=== PATIENT | male | born 1930 | race Caucasian/White ===

== ENCOUNTER 2016-09-11 22:23 | Emergency (ER) | payer MEDICARE, OTHER ==
[~2016-09-11] VITALS: Ht 180.3 cm; Wt 82.6 kg
[~2016-09-11 22:23] MED LIST: ASPI81TA2 PO; ATOR40TA PO; ATOR40TA59 PO; CARV25TA2 PO; FENO160T PO; GABA-586 PO; ISOS30TA17 PO; PANT20TA2 PO; PANT40VI IV; RANI150T2 PO; VALS1TAB22 PO; VALS1TAB33 PO; vitamin D PO
--- NOTE | 2016-09-11 22:34 | PHYS DOC ---
General Stated Complaint: FEVER,UTI Time Seen by MD: 22:29 Source: patient, EMS Problems: History of Present Illness Initial Comments Patient here by EMS for possible injury after fall. With him initial of physician evaluation, the patient's family is now the room with him. Patient states that he was going to go to the bathroom today, sat on the toilet, and the toilet literally broke on him. He says he went to the floor. He doesn't think he injured himself, he has no headache loss of consciousness or seizure activity. He says he had difficulty getting up off the floor, but was assisted off the floor by others and EMS was called to bring her to the hospital. The patient at time of physician evaluation has no complaints. He has no complaints of pain or any particular weakness. He says he normally gets around with a walker and did not try to get up and walk since his fall. Again, he has no complaints of pain or any injury since the fall. He says he did not actually go to the bathroom during the fall, was not incontinent, and has not gone to the restroom since. He denies any fever chills URI symptoms or cough today. There is no runny nose or sore throat. No vision or speech change. He has no neck or back pain. No chest pain or shortness breath. He has no nausea vomiting or abdominal pain. There is no change amount of bladder habits he denies any acute focal extremity or neurologic complains. It's noted by the physician that he does have some shaking of the upper extremity is, this is chronic per patient. Patient states he feels pretty much normal at this time. Other than transfer by EMS there is nothing done for this prior to arrival in the ER no fractures noted increase or decrease any symptoms he might have. Patient's past medical history according him is remarkable for high blood pressure. She takes medicine but he doesn't know why. He tells me ask his . He denies alcohol or cigarettes. In speaking with the who presents later. She indicates the patient's been somewhat weak all day. He had a fast yesterday and then [facility]. He was reportedly diagnosed with UTI but offer no antibiotics. He's also had several episodes of diarrhea today with increasing weakness. She doesn't think he actually broke the toilet, but they apparently have some sort of support chair on top of the toilet lid, and this may have slid off and he may fall off out. Patient's past medical history according to her is remarkable for heart disease. He has had multiple stents and she says two are clotted off according to his . He apparently has dementia as well. He has generalized weakness and difficulty walking, and she confirms that he does use a walker at home. Allergies: Coded Allergies: Sulfa (Sulfonamide Antibiotics) (Verified Allergy, Unknown, 10/09/15) Social History Smoker: non-smoker Alcohol: none Review of Systems All Other Systems: Reviewed and Negative Physical Exam General Appearance: WD/WN, no apparent distress Eyes: bilateral eye EOMI, bilateral eye PERRL, bilateral eye normal inspection Ear, Nose, Throat: normal ENT inspection, normal pharynx Neck: full range of motion, supple, normal inspection Respiratory: lungs clear, normal breath sounds, no respiratory distress Cardiovascular: regular rate, rhythm, no edema Gastrointestinal: non tender, soft, no organomegaly Back: no CVA tenderness, no vertebral tenderness Extremities: non-tender, normal inspection, no pedal edema Neurologic/Psychiatric: filter tank tender II-XII nml as tested, no motor/sensory deficits, alert, normal mood/affect Skin: normal color Lymphatic: no adenopathy Comments Generally this is an elderly white male in no acute distress. Vitals are as noted. Pertinent findings on physical exam shows a head atraumatic normocephalic. Pupils are equal reactive light accommodation. Extra ocular movements are intact. Ears and throat are clear. Neck is supple without adenopathy or JVD. There is no bony vertebral tenderness. There is no signs of trauma. Chest is clear and cardiac vascular exam shows regular rate and rhythm with a 3/6 midsystolic murmur heard best at the lower left sternal border. Abdomen is soft and nontender without masses or megaly. The back shows no CVA tenderness. There is no vertebral bony tenderness as well. Extremities show no rashes, cyanosis, or edema. Patient says the patient is alert awake and oriented to person, place, and to date and year, but not to month. Cranial nerves II through XII grossly intact. Strength 5 over 5 equal all sites tested. He is noted to have some resting tremor in the upper extremity is. There is no gross sensory deficits. He is initially not ambulated in the ER. Remainder of physical exam is clinically unremarkable. Orders, Labs, Meds Old charts note a single previous ER visit for dizziness and shaking. He was also admitted to the hospital in 2013 for GI bleed. EKG shows sinus at 70. Minimal right axis deviation. Right bundle branch block. No acute ST or T-wave changes. Labs today are essentially clinically unremarkable. Creatinine is minimally elevated at 1.8, probably consistent with the patient's age. There is no evidence of UTI. Influenza and acetone are negative. CT scan of the head shows no acute changes per radiology. 0130 Patient resting comfortably in the ED. I discussed with the the uncertain cause the patient's weakness today. There is no evidence of UTI at this time, fourthly, and his electrolytes are otherwise fairly stable. The patient is actually doing much better, the says that he is pretty much back to normal now. She says his color is better. She thinks it probably what happened as he was weak over the course of day because he had a fast prior to his physician visit earlier today. We are able to get the patient up and is able to use a walker in normal fashion as he doesn't home. He has no complaints at this time and the is quite comfortable taking him home, and I think it' s reasonable decision on her part. The delivery in an independent living facility, they can summon help as needed. does voice understanding need for the patient follow-up with primary care or return the ER sooner as needed if worsen anyway. The patient himself looks well, in no acute discomfort distress, with no acute findings on evaluation, and okay for discharge home at this time with his . RIVERA JARQUIN MD Sep 11, 2016 22:34
--- NOTE | 2016-09-11 23:09 | EKG ---
[address] [address] Test Date: 2016-09-11 Test Time: 23:08:26 Pat Name: ANDREW ORDOÑEZ Department: Room: Gender: M Mortgage Closing Clerk: IDA : 1930 Requested By: RIVERA JARQUIN Order Number: [id number] Reading MD: Measurements Intervals [place] Rate: 73 P: -27 [place]: 284 QRS: 33 QRSD: 136 T: -13 QT: 386 QTc: 429 Interpretive Statements SINUS RHYTHM PROLONGED [place] INTERVAL RIGHT BUNDLE BRANCH BLOCK QRS(T) CONTOUR ABNORMALITY CONSIDER ANTEROSEPTAL MYOCARDIAL DAMAGE ABNORMAL ECG RI6.01 Unconfirmed report Compared to ECG 07/07/2013 12:34:17 No significant changes
--- NOTE | 2016-09-11 23:34 | RAD ---
PROCEDURE CT head without contrast. HISTORY Fall tonight, hit head. Confusion, weakness, fever. TECHNIQUE Helical CT imaging of the brain is performed without IV contrast. PQRS: One or more the following individualized dose reduction techniques were utilized for the study: 1. Automated exposure control. 2. Adjustment of the mA and/or kV according to patient size. 3. Use of iterative reconstruction technique. COMPARISON CT head without contrast, July 07, 2013. FINDINGS There is no midline shift or mass effect. No extra-axial fluid collection or intraparenchymal hemorrhage. Malave-white matter differentiation is preserved. The ventricles and sulci are prominent, consistent with age-related cerebral atrophy. There is periventricular white matter hypoattenuation, nonspecific but commonly due to chronic small vessel ischemic disease in a patient of this age. Mucosal thickening left maxillary sinus. The mastoid air cells are clear. The globes and orbits appear intact. No acute calvarial abnormality. IMPRESSION No acute intracranial abnormality. Electronically signed by: Elder Adames MD (Sep 11, 2016 23:34:15)
[2016-09-12 00:34] LABS: BASO # 0.1 x10^3/uL (0.0-0.2); BASO % 0 % (0-3); EOS # 0.1 x10^3/uL (0.0-0.7); EOS % 1 % (0-3); HEMATOCRIT 35.1 % (39.0-53.0); HEMOGLOBIN 11.9 g/dL (13.0-17.5); LYMPH % 14 % (24-48); MEAN CORPUSCULAR HEMOGLOBIN 31 pg (25-35); MEAN CORPUSCULAR HGB CONC 34 g/dL (31-37); MEAN CORPUSCULAR VOLUME 92 fL (79-100); MONO # 0.9 x10^3/uL (0.0-1.1); MONO % 6 % (0-9); NEUT # 11.2 x10^3uL (1.8-7.7); NEUT % 78 % (31-73); PLATELET COUNT 116 x10^3/uL (140-400); RED BLOOD COUNT 3.82 x10^6/uL (4.30-5.70); RED CELL DISTRIBUTION WIDTH 15.7 % (11.5-14.5); WHITE BLOOD COUNT 14.2 x10^3/uL (4.0-11.0)
[2016-09-12 00:44] LABS: ALBUMIN 2.9 g/dL (3.4-5.0); CALCIUM 8.1 mg/dL (8.5-10.1); CREATININE 1.8 mg/dL (0.7-1.3); GFR 36.1; TOTAL BILIRUBIN 0.8 mg/dL (0.2-1.0); TOTAL PROTEIN 5.7 g/dL (6.4-8.2)
[2016-09-12 01:14] LABS: BACTERIA,URINE FEW /HPF (0-FEW); BILIRUBIN,URINE NEG (NEG); CLARITY,URINE CLEAR; COLOR,URINE YELLOW; GLUCOSE,URINE NEG (NEG); HYALINE CASTS, URINE OCC /HPF; NITRITE,URINE NEG (NEG); RBC,URINE RARE /HPF (0-2); SQUAMOUS EPITHELIAL CELL,UR OCC /LPF; UROBILINOGEN,URINE 2 mg/dL (0.2 mg/dL); WBC,URINE OCC /HPF (0-4)
[2016-09-12 01:25] LABS: INFLUENZA A PATIENT NEGATIVE (NEGATIVE); INFLUENZA B PATIENT NEGATIVE (NEGATIVE)
[2016-09-12 01:35] VITALS: BP 120/69
== END 2016-09-12 01:55 | disposition home or self-care (01) ==
LOC: ER 22:23
DX: R53.1 Weakness (principal); F03.90 Unspecified dementia, unspecified severity, without behavioral disturbance, psychotic disturbance, mood disturbance, and anxiety; R19.7 Diarrhea, unspecified; Z88.2 Allergy status to sulfonamides
CPT/HCPCS: 36415; 70450; 80053; 81001; 82010; 83605; 85027; 85610; 87040; 87804; 93005; 99285-25

== ENCOUNTER 2016-12-07 08:41 | Emergency (ER) | payer MEDICARE, OTHER ==
[~2016-12-07] VITALS: Ht 180.3 cm; Wt 81.6 kg
[~2016-12-07 08:41] MED LIST changes: +ASPI-630 PO; -ASPI81TA2 PO; -ISOS30TA17 PO; +ISOS30TA19 PO; -PANT20TA2 PO; +PANT20TA58 PO; -PANT40VI IV; +PANT40VI16 IV
--- NOTE | 2016-12-07 08:54 | EKG ---
[address] [address] Test Date: 2016-12-07 Test Time: 08:48:19 Pat Name: ANDREW ORDOÑEZ Department: Room: Gender: M Dental Surgeon: CHICHO : 1930 Requested By: ADRIAN GORDILLO Order Number: [id number] Reading MD: John Allen Measurements Intervals [place] Rate: 64 P: -27 [place]: 266 QRS: 55 QRSD: 144 T: -23 QT: 486 QTc: 506 Interpretive Statements SINUS RHYTHM PROLONGED [place] INTERVAL LEFT ATRIAL ABNORMALITY RIGHT BUNDLE BRANCH BLOCK Electronically Signed On 12-26-2016 15:14:24 CDT by John Allen
[2016-12-07] MEDS ORDERED: IV NORMAL SALINE 1,000ML 1,000 ML IV ONE (09:00)
[2016-12-07 09:10] LABS: BASO # 0.1 x10^3/uL (0.0-0.2); BASO % 1 % (0-3); EOS # 0.3 x10^3/uL (0.0-0.7); EOS % 3 % (0-3); HEMATOCRIT 43.5 % (39.0-53.0); HEMOGLOBIN 14.8 g/dL (13.0-17.5); LYMPH # 2.3 x10^3/uL (1.0-4.8); LYMPH % 23 % (24-48); MEAN CORPUSCULAR HEMOGLOBIN 31 pg (25-35); MEAN CORPUSCULAR HGB CONC 34 g/dL (31-37); MEAN CORPUSCULAR VOLUME 91 fL (79-100); MONO # 0.6 x10^3/uL (0.0-1.1); MONO % 6 % (0-9); NEUT # 6.8 x10^3uL (1.8-7.7); NEUT % 67 % (31-73); PLATELET COUNT 154 x10^3/uL (140-400); RED BLOOD COUNT 4.78 x10^6/uL (4.30-5.70); RED CELL DISTRIBUTION WIDTH 14.6 % (11.5-14.5); WHITE BLOOD COUNT 10.1 x10^3/uL (4.0-11.0)
--- NOTE | 2016-12-07 09:12 | RAD ---
CT of the head without contrast, 12/07/2016: History: Altered mental status, patient fell Comparison is made to a study from 09/11/2016. There is moderate cerebral atrophy. There are unchanged lucencies in the left frontal lobe compatible with an old infarct. There are additional faint periventricular lucencies bilaterally compatible with chronic ischemic change. The ventricles are mildly enlarged on a compensatory basis. There is no shift of the midline structures. There is no evidence of acute intracranial hemorrhage or mass effect. There is moderate mucosal thickening in the left maxillary sinus. IMPRESSION: 1. Chronic findings as described above. 2. No acute intracranial abnormality is detected. PQRS Compliance Statement: One or more of the following individualized dose reduction techniques were utilized for this examination: 1. Automated exposure control 2. Adjustment of the mA and/or kV according to patient size 3. Use of iterative reconstruction technique
[2016-12-07 09:22] LABS: ALBUMIN 3.6 g/dL (3.4-5.0); CALCIUM 8.8 mg/dL (8.5-10.1); CREATININE 1.4 mg/dL (0.7-1.3); GFR 48.3; POTASSIUM 4.2 mmol/L (3.5-5.1); TOTAL BILIRUBIN 0.6 mg/dL (0.2-1.0); TOTAL PROTEIN 7.1 g/dL (6.4-8.2)
[2016-12-07 09:53] LABS: BILIRUBIN,URINE NEG (NEG); CLARITY,URINE CLEAR; COLOR,URINE YELLOW; GLUCOSE,URINE NEG (NEG); NITRITE,URINE NEG (NEG); UROBILINOGEN,URINE 0.2 mg/dL (0.2 mg/dL)
[2016-12-07 09:54] LABS: BACTERIA,URINE 0 /HPF (0-FEW); HYALINE CASTS, URINE OCC /HPF; SQUAMOUS EPITHELIAL CELL,UR OCC /LPF; WBC,URINE OCC /HPF (0-4)
--- NOTE | 2016-12-07 10:03 | RAD ---
CT cervical spine without contrast 12/07/2016 at 9:15 AM Indication: Altered mental status, fall this a.m. with tremors. Comparison: CT chest 10/17/2008 Technique: Multiple axial CT images of the cervical spine were performed without intravenous contrast. Findings: Alignment of the cervical spine is normal. There is no evidence for acute fracture or dislocation. Thyroid gland is mildly heterogeneous. There is disc height loss at C3-C4, C4-C5, C5-C6 and to the greatest extent C6-C7. Small posterior disc ossify complexes are identified at C5-C6 and C6-C7 resulting in up to mild spinal canal stenosis. There is mild to moderate facet arthropathy, most significant at C4-C5 on the left and C6-C7 on the right. Mild multilevel neural foraminal stenosis is noted. There is moderate to severe uncovertebral joint arthropathy at C5-C6 and C6-C7. There is redemonstration of a partly calcified mass at the medial right lung apex measuring 2.3 cm, stable dating back to 10/17/2008 and maybe reflects an area of scarring. Skull base and posterior fossa are grossly unremarkable. Impression: 1. No acute fracture or malalignment. 2. Moderate degenerative changes of the cervical spine are noted.
--- NOTE | 2016-12-07 10:06 | RAD ---
Chest Radiograph 12/07/2016 at 9:10 AM Indication: Shortness of breath, fall this a.m. Comparison: Chest radiograph 07/07/2013 Technique: Single AP semiupright view of the chest is provided. Findings: Median sternotomy changes are identified in the mediastinum. The cardiomediastinal silhouette is normal. There is mild pulmonary vascular congestion. No pleural effusions. No pneumothorax. Lungs are clear. Osseous structures appear normal. Cholecystectomy clips are identified in the right upper quadrant. Spinal augmentation changes noted in the lower thoracic vertebrae. Impression: Mild pulmonary vascular congestion.
[2016-12-07] MEDS ORDERED: ASPIRIN 81 MG TAB.CHEW PO ONE (10:30)
--- NOTE | 2016-12-07 10:43 | ED.ADGEN ---
Past History Past Medical History: CAD, GERD, High Cholesterol, Hypertension, Other Past Surgical History: Cholecystectomy, Coronary Bypass Surgery, Other Smoking: Non-smoker Alcohol Use: None Drug Use: None Adult General Chief Complaint Chief Complaint Altered mental status, left-sided weakness HPI HPI Patient is a 86-year-old male who was found down in his apartment on his bedroom floor. Patient was alert but confused and EMS arrival with flaccid left-sided paralysis. Patient responsive to questions and was found approximately 08 30 this morning.. Last known normal was 22:30 last night. Patient also noted to have liberation of left central forehead and complaining of neck pain. Patient recalls sliding off of his bed. Other than improvement of mental status, patient had improvement of neurologic symptoms during transport. Review of Systems Review of Systems ROS as per HPI. Current Medications Current Medications Current Medications Medications (Trade) Dose Ordered Sig/Eulalio Start Time Stop Time Status Last Admin Dose Admin Aspirin (Children'S Aspirin) 162 mg 1X ONCE 12/07/16 10:30 12/07/16 10:31 DC 12/07/16 10:17 162 MG Sodium Chloride 1,000 ml @ 1,000 mls/hr 1X ONCE 12/07/16 09:00 12/07/16 09:59 DC 12/07/16 09:00 1,000 MLS/HR Allergies Allergies Allergies Coded Allergies Type Severity Reaction Last Updated Verified Sulfa (Sulfonamide Antibiotics) Allergy Unknown 12/07/16 Yes Physical Exam Physical Exam Constitutional: Well developed, well nourished, no acute distress, non-toxic appearance. HENT: Normocephalic, abrasion, left forehead, bilateral external ears normal, oropharynx moist, nose normal. Eyes: PERRLA, EOMI. Neck: Supple, no midline TTP. Cervical collar in place. Cardiovascular:Heart rate regular rhythm, no murmur. Lungs & Thorax: Bilateral breath sounds clear. Abdomen: Bowel sounds normal, soft, no tenderness. Skin: Warm, dry. Extremities: No tenderness, no cyanosis, no clubbing, ROM intact, no edema. [ Neurologic: Alert and oriented X , NIH stroke assessment per ER nurse. Stroke score is 16. (0 for LOC 1 for level of cautions questions, one for level of consciousness commands, 3 for left arm motor, 3 for left leg motor, 2 for right arm motor, 2 for right leg motor, 1 for sensory, 2 for language, 1 for dysarthria) Psychologic: Affect normal. Current Patient Data Vital Signs Vital Signs Date Time Temp Pulse Resp B/P (MAP) Pulse Ox O2 Delivery O2 Flow Rate FiO2 12/07/16 08:41 97.7 66 18 97 Room Air Lab Results Laboratory Tests Test 12/07/16 08:45 12/07/16 08:48 12/07/16 09:30 White Blood Count 10.1 x10^3/uL (4.0-11.0) Red Blood Count 4.78 x10^6/uL (4.30-5.70) Hemoglobin 14.8 g/dL (13.0-17.5) Hematocrit 43.5 % (39.0-53.0) Mean Corpuscular Volume 91 fL (79-100) Mean Corpuscular Hemoglobin 31 pg (25-35) Mean Corpuscular Hemoglobin Concent 34 g/dL (31-37) Red Cell Distribution Width 14.6 % (11.5-14.5) H Platelet Count 154 x10^3/uL (140-400) Neutrophils (%) (Auto) 67 % (31-73) Lymphocytes (%) (Auto) 23 % (24-48) L Monocytes (%) (Auto) 6 % (0-9) Eosinophils (%) (Auto) 3 % (0-3) Basophils (%) (Auto) 1 % (0-3) Neutrophils # (Auto) 6.8 x10^3uL (1.8-7.7) Lymphocytes # (Auto) 2.3 x10^3/uL (1.0-4.8) Monocytes # (Auto) 0.6 x10^3/uL (0.0-1.1) Eosinophils # (Auto) 0.3 x10^3/uL (0.0-0.7) Basophils # (Auto) 0.1 x10^3/uL (0.0-0.2) Prothrombin Time 10.4 SEC (9.4-11.4) Prothrombin Time INR 1.0 (0.9-1.1) PTT 23 SEC (23-33) Sodium Level 143 mmol/L (136-145) Potassium Level 4.2 mmol/L (3.5-5.1) Chloride Level 107 mmol/L (98-107) Carbon Dioxide Level 27 mmol/L (21-32) Anion Gap 9 (6-14) Blood Urea Nitrogen 24 mg/dL (8-26) Creatinine 1.4 mg/dL (0.7-1.3) H Estimated GFR (Cockcroft-Gault) 48.3 BUN/Creatinine Ratio 17 (6-20) Glucose Level 106 mg/dL (70-99) H Calcium Level 8.8 mg/dL (8.5-10.1) Total Bilirubin 0.6 mg/dL (0.2-1.0) Aspartate Amino Transferase (AST) 21 U/L (15-37) Alanine Aminotransferase (ALT) 20 U/L (16-63) Alkaline Phosphatase 83 U/L (46-116) Creatine Kinase 61 U/L (39-308) Total Protein 7.1 g/dL (6.4-8.2) Albumin 3.6 g/dL (3.4-5.0) Albumin/Globulin Ratio 1.0 (1.0-1.7) Glucose (Fingerstick) 101 mg/dL (70-99) H Urine Collection Type Unknown Urine Color Yellow Urine Clarity Clear Urine pH 7.0 Urine Specific [place] 1.015 Urine Protein Neg (NEG-TRACE) Urine Glucose (UA) Neg mg/dL (NEG) Urine Ketones (Stick) Neg mg/dL (NEG) Urine Blood Trace (NEG) Urine Nitrite Neg (NEG) Urine Bilirubin Neg (NEG) Urine Urobilinogen Dipstick 0.2 mg/dL (0.2 mg/dL) Urine Leukocyte Esterase Neg (NEG) Urine RBC 3-5 /HPF (0-2) Urine WBC Occ /HPF (0-4) Urine Squamous Epithelial Cells Occ /LPF Urine Bacteria 0 /HPF (0-FEW) Urine Hyaline Casts Occ /HPF Urine Mucus Slight /LPF EKG EKG [EKG: Normal sinus rhythm, rate 64, prolonged OK interval consistent with first- degree heart block, bundle branch block, inferior Q waves, no acute ST-T wave changes, QTC 506.] Radiology/Procedures Radiology/Procedures [CT head: No acute intercranial process per radiology report CT cervical spine: No acute injury Chest x-ray: Mild pulmonary vascular congestion] Course & Med Decision Making Course & Med Decision Making Pertinent Labs and Imaging studies reviewed. (See chart for details) [NIH stroke score 16 with last known normal greater than 10 hours prior to ED arrival. Patient's swallow reflex is intact. 2 baby aspirin given, patient is not a candidate for a peripheral TPA therapy. Patient transferred to [facility] on the [place] for expedited neuroimaging with possible neuro-intervention. Dr. Amy Nettles's accepts to the ED] Final Impression Final Impression [1. CVA 2. Left sided weaknes] Problems: Dragon Disclaimer Dragon Disclaimer This electronic medical record was generated, in whole or in part, using a voice recognition dictation system. ADRIAN GORDILLO DO Dec 07, 2016 10:43
[2016-12-07 11:05] VITALS: BP 159/76
== END 2016-12-07 11:10 ==
LOC: ER 08:41
DX: I63.9 Cerebral infarction, unspecified (principal); K21.9 Gastro-esophageal reflux disease without esophagitis; E78.00 Pure hypercholesterolemia, unspecified; I10 Essential (primary) hypertension; I25.810 Atherosclerosis of coronary artery bypass graft(s) without angina pectoris; Z88.2 Allergy status to sulfonamides
CPT/HCPCS: 36415; 51702; 70450; 71010; 72125; 80053; 81001; 82550; 82947; 85027; 85610; 85730; 93005; 96360; 99285-25; J7030

== ENCOUNTER 2017-07-16 09:16 | Inpatient (IN) | payer MEDICARE, OTHER ==
[~2017-07-16] VITALS: Ht 180.3 cm; Wt 83.9 kg
[2017-07-16] MEDS ORDERED: IV NORMAL SALINE 1,000ML 1,000 ML IV ONE (10:30)
--- NOTE | 2017-07-16 10:46 | RAD ---
CHEST PA LATERAL History: Shortness of breath Comparison: December 07, 2016 Findings: 2 views of the chest are submitted. There again has been a median sternotomy. Patient is somewhat rotated for exam. Pericardial cardiac silhouette is enlarged although similar. There is mild airspace opacity at the left lung base which may be due to mild atelectasis or infiltrate. There is no significant pleural fluid or pneumothorax. There is eventration of the right hemidiaphragm. There is atherosclerotic calcification near aortic arch. There is degenerative change of the left shoulder. Impression: 1. There is mild left base atelectasis or infiltrate. Electronically signed by: Vik Hollins MD (07/16/2017 10:43 AM) [id number]
[2017-07-16 11:00] LABS: BASO % 1 % (0-3); EOS % 0 % (0-3); HEMATOCRIT 43.7 % (39.0-53.0); LYMPH # 2.4 x10^3/uL (1.0-4.8); LYMPH % 32 % (24-48); MEAN CORPUSCULAR HEMOGLOBIN 32 pg (25-35); MEAN CORPUSCULAR HGB CONC 34 g/dL (31-37); MEAN CORPUSCULAR VOLUME 94 fL (79-100); MONO # 0.8 x10^3/uL (0.0-1.1); MONO % 10 % (0-9); NEUT # 4.3 x10^3uL (1.8-7.7); NEUT % 57 % (31-73); PLATELET COUNT 125 x10^3/uL (140-400); RED BLOOD COUNT 4.66 x10^6/uL (4.30-5.70); RED CELL DISTRIBUTION WIDTH 14.7 % (11.5-14.5); WHITE BLOOD COUNT 7.6 x10^3/uL (4.0-11.0)
[2017-07-16] MEDS ORDERED: AZITHROMYCIN 250 MG TABLET. PO ONE (11:00)
[2017-07-16] MEDS ORDERED: cefTRIAXone IV Push 1 GM VIAL. IVP ONE (11:00)
[2017-07-16 11:16] LABS: CALCIUM 8.9 mg/dL (8.5-10.1); CREATININE 1.7 mg/dL (0.7-1.3); GFR 38.5; POTASSIUM 4.3 mmol/L (3.5-5.1)
--- NOTE | 2017-07-16 11:29 | PHYS DOC ---
Past History Past Medical History: CAD, GERD, High Cholesterol, Hypertension, [place], Renal Disease, Other Past Surgical History: Cholecystectomy, Coronary Bypass Surgery, Other Smoking: Non-smoker Alcohol Use: None Drug Use: None Adult General Chief Complaint Chief Complaint: SHORTNESS OF BREATH HPI HPI Patient is a 87 year old M who presents with shortness of breath and generalized weakness. Wright history is limited due to his current medical condition. He does describe shortness of breath however it is inconsistent. He also describes cough. It seems that his symptoms are worse with activity and improved with rest. He feels that his symptoms been present over the past several days. He does live in a halfway in an independent living wing. He has no other reported associated symptoms. He has no other reported exacerbating or alleviating factors. Review of Systems Review of Systems Constitutional: Denies fever or chills [] Eyes: Denies change in visual acuity, redness, or eye pain [] HENT: Denies nasal congestion or sore throat [] Respiratory: Negative except history of present illness Cardiovascular: No additional information not addressed in HPI [] GI: Denies abdominal pain, nausea, vomiting, bloody stools or diarrhea [] : Denies dysuria or hematuria [] Musculoskeletal: Denies back pain or joint pain [] Integument: Denies rash or skin lesions [] Neurologic: Denies headache, focal weakness or sensory changes [] Endocrine: Denies polyuria or polydipsia [] All other systems were reviewed and found to be within normal limits, except as documented in this note. Family History Family History No pertinent family medical history was reported Current Medications Current Medications Current Medications Medications (Trade) Dose Ordered Sig/Eulalio Start Time Stop Time Status Last Admin Dose Admin Azithromycin (Zithromax) 500 mg 1X ONCE 07/16/17 11:00 07/16/17 11:01 DC 07/16/17 10:54 500 MG Ceftriaxone Sodium 1 gm/ Sodium Chloride 50 ml @ 100 mls/hr 1X ONCE 07/16/17 10:30 07/16/17 10:59 UNV Ceftriaxone Sodium (Rocephin) 1 gm 1X ONCE 07/16/17 11:00 07/16/17 11:01 DC 07/16/17 10:53 1 GM Sodium Chloride 1,000 ml @ 1,000 mls/hr 1X ONCE 07/16/17 10:30 07/16/17 11:29 07/16/17 10:53 1,000 MLS/HR Allergies Allergies Allergies Coded Allergies Type Severity Reaction Last Updated Verified Sulfa (Sulfonamide Antibiotics) Allergy Unknown 12/07/16 Yes Physical Exam Physical Exam Constitutional: Well developed, well nourished, no acute distress, non-toxic appearance. [] HENT: Normocephalic, atraumatic, Eyes: EOMI, conjunctiva normal, no discharge. [] Neck: Normal range of motion, no tenderness, supple, no stridor. [] Cardiovascular:Heart rate regular rhythm, Lungs & Thorax: Bilateral breath sounds clear to auscultation [] rhonchi and expiratory wheezes noted in the left base Abdomen: Bowel sounds normal, soft, no tenderness, no masses, no pulsatile masses. [] Skin: Warm, dry, no erythema, no rash. [] Back: No tenderness, no CVA tenderness. [] Extremities: No tenderness, no cyanosis, no clubbing, ROM intact, no edema. [] Neurologic: Alert and oriented X 3, slowed cognition and intermittently confused , normal motor function, normal sensory function, no focal deficits noted. [] Mild to moderate generalized weakness noted Psychologic: Affect normal, judgement normal, mood normal. [] Current Patient Data Vital Signs Vital Signs Date Time Temp Pulse Resp B/P (MAP) Pulse Ox O2 Delivery O2 Flow Rate FiO2 07/16/17 09:16 98.7 62 20 98 Room Air Lab Results Laboratory Tests Test 07/16/17 10:40 White Blood Count 7.6 x10^3/uL (4.0-11.0) Red Blood Count 4.66 x10^6/uL (4.30-5.70) Hemoglobin 15.0 g/dL (13.0-17.5) Hematocrit 43.7 % (39.0-53.0) Mean Corpuscular Volume 94 fL (79-100) Mean Corpuscular Hemoglobin 32 pg (25-35) Mean Corpuscular Hemoglobin Concent 34 g/dL (31-37) Red Cell Distribution Width 14.7 % (11.5-14.5) H Platelet Count 125 x10^3/uL (140-400) L Neutrophils (%) (Auto) 57 % (31-73) Lymphocytes (%) (Auto) 32 % (24-48) Monocytes (%) (Auto) 10 % (0-9) H Eosinophils (%) (Auto) 0 % (0-3) Basophils (%) (Auto) 1 % (0-3) Neutrophils # (Auto) 4.3 x10^3uL (1.8-7.7) Lymphocytes # (Auto) 2.4 x10^3/uL (1.0-4.8) Monocytes # (Auto) 0.8 x10^3/uL (0.0-1.1) Eosinophils # (Auto) 0.0 x10^3/uL (0.0-0.7) Basophils # (Auto) 0.0 x10^3/uL (0.0-0.2) Sodium Level 141 mmol/L (136-145) Potassium Level 4.3 mmol/L (3.5-5.1) Chloride Level 106 mmol/L (98-107) Carbon Dioxide Level 28 mmol/L (21-32) Anion Gap 7 (6-14) Blood Urea Nitrogen 30 mg/dL (8-26) H Creatinine 1.7 mg/dL (0.7-1.3) H Estimated GFR (Cockcroft-Gault) 38.5 Glucose Level 94 mg/dL (70-99) Calcium Level 8.9 mg/dL (8.5-10.1) EKG EKG [] Radiology/Procedures Radiology/Procedures Chest x-ray Impressions: Mid left base infiltrate Course & Med Decision Making Course & Med Decision Making Pertinent Labs and Imaging studies reviewed. (See chart for details) Pneumonia Severity Index: 155 CURB 65: 3 Dragon Disclaimer Dragon Disclaimer This electronic medical record was generated, in whole or in part, using a voice recognition dictation system. Departure Departure: Impression: Primary Impression: Community acquired pneumonia Disposition: ADMITTED INPATIENT Admitting Physician: Boni Bernard Condition: STABLE Referrals: [facility] (PCP) Problem Qualifiers Primary Impression: Community acquired pneumonia Laterality: right Lung location: lower lobe of lung Qualified Codes: J18.1 - Lobar pneumonia, unspecified organism SHILA FLORES MD Jul 16, 2017 11:29
[2017-07-16 12:36] VITALS: BP 148/68
[2017-07-16] MEDS ORDERED: DONE10TA61 PO (13:52)
[2017-07-16] MEDS ORDERED: LATA2.5D3 EACHEYE (13:52)
[2017-07-16] MEDS ORDERED: CLOP75TA PO (13:53)
[2017-07-16] MEDS ORDERED: AMLO10TA2 PO (13:53)
[2017-07-16] MEDS ORDERED: CARB1TAB2 PO (13:53)
[2017-07-16 15:30] VITALS: BP 173/74
--- NOTE | 2017-07-16 15:57 | EKG ---
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
[2017-07-16] MEDS ORDERED: cefTRIAXone IV Push 1 GM VIAL. IVP SCH (16:00)
[2017-07-16] MEDS: CARVEDILOL 12.5 MG TABLET PO SCH (17:15)
[2017-07-16 19:30] VITALS: BP 160/62
--- NOTE | 2017-07-16 19:51 | HP ---
ADMIT DATE: 07/16/2017 HISTORY OF PRESENT ILLNESS: The patient is an 87-year-old male patient, a resident at [facility], who was brought to the Emergency Room with worsening shortness of breath, cough with yellowish to whitish sputum. He denied any chest pain, denied any fevers, chills or rigors. He was evaluated in the Emergency Room, was found to have left lower lobe infiltrate and was admitted, started on IV antibiotic in the form of ceftriaxone and Zithromax. His lab work showed that his kidney function is impaired; however, looking back at his lab work before, his creatinine is around 2. PAST MEDICAL HISTORY: Significant for chronic kidney disease stage 3, coronary artery disease, gastroesophageal reflux disease, restless leg syndrome, peripheral vascular disease, benign prostatic nodule and myocardial infarction in 1984. PAST SURGICAL HISTORY: Significant for coronary artery bypass graft surgery in 1991, renal stent placed in 2004 for renal artery stenosis, coronary angioplasty 1991 and 2001, right knee replacement and cholecystectomy. MEDICATIONS: He is on following medications: He is on amlodipine 10 mg once a day, atorvastatin calcium 40 mg once a day, carbidopa/levodopa 25/100 three times a day, carvedilol 25 mg twice a day, Plavix 75 mg once a day, Aricept 10 mg at bedtime, isosorbide dinitrate 30 mg twice a day, latanoprost 1 drop to both eyes at bedtime, ranitidine 150 mg twice a day, valsartan/hydrochlorothiazide 320/25 one tablet once a day. ALLERGIES: HE IS ALLERGIC TO SULFA DRUGS. FAMILY HISTORY: Positive for enlarged heart in father and brother. SOCIAL HISTORY: The patient is . He quit smoking long time ago; he has a [id number] history. He lives in assisted living facility. He does not smoke, drink alcohol or use any recreational drugs. REVIEW OF SYSTEMS: The patient denied any blurring of vision, cataract, glaucoma or macular degeneration. Denied any earache, tinnitus or sensorineural deafness. Denied nosebleeds, stuffy nose or postnasal drip. Denied any sore throat, sore tongue, toothache, hoarseness of voice or difficulty swallowing. Denied any nausea, vomiting, diarrhea or constipation. Denied any hematemesis, melena or hematochezia. Denied any dysuria, frequency or hematuria. Denied any chest pain, shortness of breath. Did complain of cough with shortness of breath on exertion. Denied any chills, rigors or fever. PHYSICAL EXAMINATION: GENERAL: On arrival to the Emergency Room, he was resting slightly propped up in bed, no apparent distress. No pallor, jaundice, cyanosis, or thyromegaly. No jugular venous distension. No lower limb edema. VITAL SIGNS: His heart rate was 62, blood pressure 159/64, temperature was 98.7, respiratory rate 20, and oxygen saturation was 98% on room air. HEAD, EYES, EARS, NOSE AND THROAT: Showed normocephalic, atraumatic. NECK: Supple. HEART: Showed normal first and second heart sounds with no gallop, rub or murmur. CHEST: Showed a central trachea, equal expansion, good air entry, vesicular sounds with crepitation mostly in the left side posteriorly. ABDOMEN: Distended, soft, nontender. No guarding or rigidity. No organomegaly. All hernial orifices intact. Bowel sounds normal. NEUROLOGIC: He was awake, alert, responding appropriately. Cranial nerves intact. EXTREMITIES: He moves extremities without difficulty. LABORATORY WORK: Showed white cell count 7600, hemoglobin 15, hematocrit 44, MCV 94 and platelet count of 125,000. His chemistry showed a serum sodium 141, potassium 4.3, chloride 106, bicarbonate 28, anion gap of 7, BUN 30, creatinine 1.7, estimated GFR was 58 mL per minute. His glucose was 94. Lactic acid 1.4 and calcium was 8.9. His chest x-ray showed there is mild left base atelectasis and infiltrate. ASSESSMENT AND PLAN: The patient was admitted with community-acquired pneumonia. He was started on Rocephin and Zithromax. We will continue with all his home medication and we will repeat all his labs tomorrow and decide on further management accordingly. BLADIMIR BOOKER MD DR: ANAIS/hernán JOB#: [id number] / [id number]
[2017-07-16] MEDS: ISOSORBIDE DINITRATE 10 MG TABLET. PO SCH (20:30)
[2017-07-16] MEDS: CARBIDOPA/LEVODOPA 25/100MG TABLET PO SCH (20:30)
[2017-07-16] MEDS: ATORVASTATIN CALCIUM 20 MG TABLET PO SCH (20:30)
[2017-07-16] MEDS: LATANOPROST 0.005% OPHTH SOLUTION 2.5ML BOTTLE. OU SCH (20:30)
[2017-07-16] MEDS: DONEPEZIL HCL 10 MG TABLET PO SCH (20:30)
[2017-07-16] MEDS: FAMOTIDINE 20 MG TABLET PO SCH (20:31)
[2017-07-16 23:56] VITALS: BP 137/66
[2017-07-17 06:35] VITALS: BP 164/75
[2017-07-17 07:10] LABS: BASO % 0 % (0-3); EOS # 0.1 x10^3/uL (0.0-0.7); EOS % 1 % (0-3); HEMATOCRIT 37.7 % (39.0-53.0); LYMPH # 2.5 x10^3/uL (1.0-4.8); LYMPH % 42 % (24-48); MEAN CORPUSCULAR HEMOGLOBIN 32 pg (25-35); MEAN CORPUSCULAR HGB CONC 35 g/dL (31-37); MEAN CORPUSCULAR VOLUME 93 fL (79-100); MONO # 0.6 x10^3/uL (0.0-1.1); MONO % 10 % (0-9); NEUT # 2.8 x10^3uL (1.8-7.7); NEUT % 47 % (31-73); PLATELET COUNT 104 x10^3/uL (140-400); RED BLOOD COUNT 4.06 x10^6/uL (4.30-5.70); RED CELL DISTRIBUTION WIDTH 14.8 % (11.5-14.5); WHITE BLOOD COUNT 5.9 x10^3/uL (4.0-11.0)
[2017-07-17 07:28] LABS: ALBUMIN 2.9 g/dL (3.4-5.0); CALCIUM 8.1 mg/dL (8.5-10.1); CREATININE 1.4 mg/dL (0.7-1.3); GFR 48.2; POTASSIUM 3.8 mmol/L (3.5-5.1); TOTAL BILIRUBIN 0.7 mg/dL (0.2-1.0); TOTAL PROTEIN 5.8 g/dL (6.4-8.2)
[2017-07-17] MEDS: ISOSORBIDE DINITRATE 10 MG TABLET. PO SCH ×2 (09:00→20:21)
[2017-07-17] MEDS: CARBIDOPA/LEVODOPA 25/100MG TABLET PO SCH ×3 (09:08→20:20)
[2017-07-17] MEDS: CLOPIDOGREL BISULFATE 75 MG TABLET PO SCH (09:08)
[2017-07-17] MEDS: FAMOTIDINE 20 MG TABLET PO SCH (09:08)
[2017-07-17] MEDS: CARVEDILOL 12.5 MG TABLET PO SCH ×2 (09:09→17:33)
[2017-07-17] MEDS: hydroCHLOROthiazide 25 MG TABLET PO SCH (09:09)
[2017-07-17] MEDS: amLODIPine BESYLATE 10 MG TABLET PO SCH (09:09)
[2017-07-17] MEDS: LOSARTAN 50 MG TABLET. PO SCH (09:10)
[2017-07-17] MEDS: LACTOBACILLUS RHAMNOSUS GG 1 CAPSULE. PO SCH ×2 (09:13→20:20)
[2017-07-17] MEDS: cefTRIAXone IV Push 1 GM VIAL. IVP SCH (11:00)
[2017-07-17 11:44] VITALS: BP 160/63
[2017-07-17 15:56] VITALS: BP 117/56
[2017-07-17 20:07] VITALS: BP 149/58
[2017-07-17] MEDS: LATANOPROST 0.005% OPHTH SOLUTION 2.5ML BOTTLE. OU SCH (20:20)
[2017-07-17] MEDS: DONEPEZIL HCL 10 MG TABLET PO SCH (20:20)
[2017-07-17] MEDS: ATORVASTATIN CALCIUM 20 MG TABLET PO SCH (20:21)
[2017-07-17 22:33] VITALS: BP 138/60
[2017-07-18 06:08] VITALS: BP 170/60
[2017-07-18 07:41] LABS: BASO % 1 % (0-3); EOS # 0.2 x10^3/uL (0.0-0.7); EOS % 4 % (0-3); HEMATOCRIT 37.9 % (39.0-53.0); HEMOGLOBIN 13.1 g/dL (13.0-17.5); LYMPH # 2.5 x10^3/uL (1.0-4.8); LYMPH % 42 % (24-48); MEAN CORPUSCULAR HEMOGLOBIN 32 pg (25-35); MEAN CORPUSCULAR HGB CONC 35 g/dL (31-37); MEAN CORPUSCULAR VOLUME 92 fL (79-100); MONO # 0.5 x10^3/uL (0.0-1.1); MONO % 9 % (0-9); NEUT # 2.6 x10^3uL (1.8-7.7); NEUT % 45 % (31-73); PLATELET COUNT 103 x10^3/uL (140-400); RED BLOOD COUNT 4.12 x10^6/uL (4.30-5.70); RED CELL DISTRIBUTION WIDTH 14.5 % (11.5-14.5); WHITE BLOOD COUNT 5.9 x10^3/uL (4.0-11.0)
[2017-07-18 07:47] LABS: CALCIUM 8.1 mg/dL (8.5-10.1); CREATININE 1.4 mg/dL (0.7-1.3); GFR 48.2; POTASSIUM 3.5 mmol/L (3.5-5.1)
--- NOTE | 2017-07-18 08:55 | PN ---
DATE: 07/17/2017 SUBJECTIVE: The patient's resting slightly propped up, sleeping comfortably in bed, in no apparent distress. On questioning him, continued to have cough and apparently continued to be unsteady on his gait; however, no fever. PHYSICAL EXAMINATION: GENERAL: When I examined him, he looked well and was clearly in no apparent respiratory distress, slightly pale, no jaundice, cyanosis, or thyromegaly. No jugular venous distension. No lower limb edema. VITAL SIGNS: His heart rate was 74, blood pressure was 160/63, temperature was 98.4, respiratory rate 20, and oxygen saturation was 94% on room air. HEAD, EARS, NOSE AND THROAT: Normocephalic, atraumatic. NECK: Supple. HEART: Showed normal first and second sounds. No gallop, rub or murmur. CHEST: Shows central trachea, equal bilateral expansion, air entry, vesicular breath sounds. No crepitation or rhonchi. ABDOMEN: Distended, soft, nontender. NEUROLOGIC: He was sleepy, but arousable. All cranial nerves intact. He moves extremities without difficulty. His intake over the last 24 hours was 1500, output was 200. LABORATORY DATA: As of this morning, his white cell count was 5900, hemoglobin 13, hematocrit 37, MCV 93, and platelet count of 104,000. His chemistry showed a serum sodium of 143, potassium 3.8, chloride 109, bicarbonate 26, anion gap of 8, BUN 28, creatinine 1.4, estimated GFR was 48 mL per minute. His glucose was 83, calcium was 8.1. Total bilirubin, AST, ALT, alkaline phosphatase were normal. His beta natriuretic peptide 1481. Total protein was 5.8, albumin was 2.9. ASSESSMENT: In summary, this is an 87-year-old male patient who was admitted with: 1. Community-acquired pneumonia for which he is on Rocephin, Zithromax. 2. Has multiple other medical problems including chronic kidney disease 3. Coronary artery disease. 4. Gastroesophageal reflux disease. 5. Restless leg syndrome. 6. Peripheral vascular disease. 7. Benign prostatic hypertrophy. PLAN: The patient continued to be weak and deconditioned and probably could probably benefit from a fci facility. We will discuss with housing case manager probably on Wednesday to see if he qualifies go to [facility]. BLADIMIR BOOKER MD DR: ANAIS/hernán JOB#: [id number] / [id number]
--- NOTE | 2017-07-18 09:00 | RAD ---
EXAM: Chest 2 views. HISTORY: Cough and shortness of breath. COMPARISON: 07/16/2017. FINDINGS: Frontal and lateral views of the chest are obtained. There are changes of coronary artery bypass grafting. There are surgical clips in the right upper quadrant. There are limitations from rotation to the left. Hyperinflation suggests chronic obstructive pulmonary disease. There is mild atelectasis or scarring in the left greater than right bases. There are atherosclerotic calcifications of the aorta. There is no pneumothorax or pleural effusion. The heart is not enlarged. IMPRESSION: 1. Chronic obstructive pulmonary disease. Bibasilar opacities are mildly improved.
[2017-07-18] MEDS: amLODIPine BESYLATE 10 MG TABLET PO SCH (09:48)
[2017-07-18] MEDS: CLOPIDOGREL BISULFATE 75 MG TABLET PO SCH (09:48)
[2017-07-18] MEDS: hydroCHLOROthiazide 25 MG TABLET PO SCH (09:49)
[2017-07-18] MEDS: LACTOBACILLUS RHAMNOSUS GG 1 CAPSULE. PO SCH ×2 (09:49→19:25)
[2017-07-18] MEDS: CARVEDILOL 12.5 MG TABLET PO SCH ×2 (09:49→17:40)
[2017-07-18] MEDS: FAMOTIDINE 20 MG TABLET PO SCH (09:49)
[2017-07-18] MEDS: CARBIDOPA/LEVODOPA 25/100MG TABLET PO SCH ×3 (09:50→19:26)
[2017-07-18] MEDS: LOSARTAN 50 MG TABLET. PO SCH (09:50)
[2017-07-18] MEDS: ISOSORBIDE DINITRATE 10 MG TABLET. PO SCH ×2 (09:50→19:26)
[2017-07-18 11:28] VITALS: BP 114/64
[2017-07-18] MEDS: cefTRIAXone IV Push 1 GM VIAL. IVP SCH (14:06)
[2017-07-18 15:30] VITALS: BP 132/63
[2017-07-18] MEDS: ATORVASTATIN CALCIUM 20 MG TABLET PO SCH (19:25)
[2017-07-18] MEDS: DONEPEZIL HCL 10 MG TABLET PO SCH (19:26)
[2017-07-18] MEDS: LATANOPROST 0.005% OPHTH SOLUTION 2.5ML BOTTLE. OU SCH (19:26)
[2017-07-18 19:33] VITALS: BP 136/68
[2017-07-18 23:08] VITALS: BP 135/60
--- NOTE | 2017-07-19 00:41 | PN ---
DATE: SUBJECTIVE: The patient is sitting comfortably in his chair, definitely more awake and alert today. Denied any complaint. The nursing staff not voiced any concern. Apparently been managed to walk with a walker with physical therapy. PHYSICAL EXAMINATION: GENERAL: When I saw him this afternoon, he looked well, slightly pale, but no jaundice, cyanosis, or thyromegaly. No jugular venous distension. No lower limb edema. VITAL SIGNS: His heart rate was 63, blood pressure 132/63, temperature was 98.3, respiratory rate 20, and oxygen saturation was 95% on room air. HEAD, EYES, EARS, NOSE AND THROAT: Showed normocephalic, atraumatic. NECK: Supple. HEART: Showed normal first and second sounds. No gallop, rub or murmur. CHEST: Showed central trachea, equal bilateral expansion, air entry, vesicular breath sounds, very few basal crepitations posteriorly. I could not appreciate any rhonchi. ABDOMEN: His abdomen was soft and nontender. No guarding or rigidity. No organomegaly. Hernial orifices intact. Bowel sounds normal. NEUROLOGIC: He was definitely more awake, alert, responding appropriately. His cranial nerves were intact. He moves extremities without difficulty. He ambulates with a walker. His intake over the last 24 hours was 1491 and output 200. LABORATORY DATA: Her lab work this morning showed a white cell count 5900, hemoglobin 13, hematocrit 38, MCV 92, and platelet count of 103,000. His chemistry showed a serum sodium of 142, potassium 3.5, chloride 107, bicarbonate 27, anion gap of 8, BUN 27, creatinine 1.4, estimated GFR was 48 mL per minute. Her glucose was 89, calcium was 8.1. ASSESSMENT AND PLAN: 1. Community-acquired pneumonia for which he was on Rocephin and Zithromax. 2. He has multiple other medical problems including chronic kidney disease. 3. ____ coronary artery disease. 4. Gastroesophageal reflux disease. 5. Restless leg syndrome. 6. Peripheral vascular disease. 7. Benign prostatic hypertrophy. The patient seemed to be much improved today. He is now sitting in the chair, was able to walk with a walker and hopefully be able to be discharged home tomorrow. BLADIMIR BOOKER MD DR: ANAIS/hernán JOB#: [id number] / [id number]
[2017-07-19 05:38] VITALS: BP 158/67
[2017-07-19] MEDS: CARVEDILOL 12.5 MG TABLET PO SCH (08:31)
[2017-07-19] MEDS: ISOSORBIDE DINITRATE 10 MG TABLET. PO SCH (08:32)
[2017-07-19 08:33] VITALS: BP 158/67
[2017-07-19] MEDS: amLODIPine BESYLATE 10 MG TABLET PO SCH (08:33)
[2017-07-19] MEDS: LOSARTAN 50 MG TABLET. PO SCH (08:33)
[2017-07-19] MEDS: hydroCHLOROthiazide 25 MG TABLET PO SCH (08:33)
[2017-07-19] MEDS: CLOPIDOGREL BISULFATE 75 MG TABLET PO SCH (08:33)
[2017-07-19] MEDS: CARBIDOPA/LEVODOPA 25/100MG TABLET PO SCH (08:33)
[2017-07-19] MEDS: LACTOBACILLUS RHAMNOSUS GG 1 CAPSULE. PO SCH (08:34)
[2017-07-19] MEDS: FAMOTIDINE 20 MG TABLET PO SCH (08:34)
[2017-07-19] MEDS ORDERED: CARV25TA2 PO (09:34)
[2017-07-19] MEDS ORDERED: LACT1CAP19 PO (09:34)
[2017-07-19] MEDS ORDERED: LEVO500T59 PO (09:34)
--- NOTE | 2017-07-19 15:16 | PDOC3 ---
Discharge Summary Visit Information Date of Admission: Jul 16, 2017 Date of Discharge: Jul 19, 2017 Final Diagnosis Problems Medical Problems: (1) Community acquired pneumonia Status: Acute ASSESSMENT AND PLAN: 1. Community-acquired pneumonia for which he was on Rocephin and Zithromax. 2. He has multiple other medical problems including chronic kidney disease. 3. ____ coronary artery disease. 4. Gastroesophageal reflux disease. 5. Restless leg syndrome. 6. Peripheral vascular disease. 7. Benign prostatic hypertrophy. Problems: Brief Hospital Course Allergies Allergies Coded Allergies Type Severity Reaction Last Updated Verified Sulfa (Sulfonamide Antibiotics) Allergy Unknown 12/07/16 Yes Vital Signs Vital Signs Date Time Temp Pulse Resp B/P (MAP) Pulse Ox O2 Delivery O2 Flow Rate FiO2 07/19/17 08:33 61 158/67 07/19/17 08:00 Room Air 07/19/17 05:38 98.1 20 96 Lab Results Laboratory Tests Test 07/18/17 07:14 White Blood Count 5.9 x10^3/uL (4.0-11.0) Red Blood Count 4.12 x10^6/uL (4.30-5.70) Hemoglobin 13.1 g/dL (13.0-17.5) Hematocrit 37.9 % (39.0-53.0) Mean Corpuscular Volume 92 fL (79-100) Mean Corpuscular Hemoglobin 32 pg (25-35) Mean Corpuscular Hemoglobin Concent 35 g/dL (31-37) Red Cell Distribution Width 14.5 % (11.5-14.5) Platelet Count 103 x10^3/uL (140-400) Neutrophils (%) (Auto) 45 % (31-73) Lymphocytes (%) (Auto) 42 % (24-48) Monocytes (%) (Auto) 9 % (0-9) Eosinophils (%) (Auto) 4 % (0-3) Basophils (%) (Auto) 1 % (0-3) Neutrophils # (Auto) 2.6 x10^3uL (1.8-7.7) Lymphocytes # (Auto) 2.5 x10^3/uL (1.0-4.8) Monocytes # (Auto) 0.5 x10^3/uL (0.0-1.1) Eosinophils # (Auto) 0.2 x10^3/uL (0.0-0.7) Basophils # (Auto) 0.0 x10^3/uL (0.0-0.2) Sodium Level 142 mmol/L (136-145) Potassium Level 3.5 mmol/L (3.5-5.1) Chloride Level 107 mmol/L (98-107) Carbon Dioxide Level 27 mmol/L (21-32) Anion Gap 8 (6-14) Blood Urea Nitrogen 27 mg/dL (8-26) Creatinine 1.4 mg/dL (0.7-1.3) Estimated GFR (Cockcroft-Gault) 48.2 Glucose Level 89 mg/dL (70-99) Calcium Level 8.1 mg/dL (8.5-10.1) Brief Hospital Course Mr. Goldstein is a 87 old [sex] who presented with [ ] HISTORY OF PRESENT ILLNESS: The patient is an 87-year-old male patient, a resident at [facility], who was brought to the Emergency Room with worsening shortness of breath, cough with yellowish to whitish sputum. He denied any chest pain, denied any fevers, chills or rigors. He was evaluated in the Emergency Room, was found to have left lower lobe infiltrate and was admitted, started on IV antibiotic in the form of ceftriaxone and Zithromax. His lab work showed that his kidney function is impaired; however, looking back at his lab work before, his creatinine is around 2.HE RECEIVED IV ANTIBIOTICS AND FLUIDS AND IMPROVED DURING HIS HOSPITALIZATION TO BE ABLE TO BE DISCHARGED BACK TO HIS NURSING FACILITY. DISCHARGE INSTRUCTIONS GIVEN AND MEDICATIONS RECONCILED. Discharge Information Condition at Discharge: Improved Disposition/Orders: D/C to Another Facility Dischare Medications Current Medications Sodium Chloride 1,000 ml @ 1,000 mls/hr 1X ONCE IV Last administered on at 10:53; Start 07/16/17 at 10:30; Stop 07/16/17 at 15:47; Status DC Ceftriaxone Sodium 1 gm/ Sodium Chloride 50 ml @ 100 mls/hr 1X ONCE IV ; Start 07/16/17 at 10:30; Stop 07/16/17 at 10:59; Status UNV Azithromycin (Zithromax) 500 mg 1X ONCE PO Last administered on 07/16/17at 10: 54; Start 07/16/17 at 11:00; Stop 07/16/17 at 11:01; Status DC Ceftriaxone Sodium (Rocephin) 1 gm 1X ONCE IVP Last administered on 07/16/17at 10:53; Start 07/16/17 at 11:00; Stop 07/16/17 at 11:01; Status DC Amlodipine Besylate (Norvasc) 10 mg DAILY PO Last administered on 07/19/17at 08: 33; Start 07/17/17 at 09:00; Stop 07/19/17 at 10:40; Status DC Carbidopa/Levodopa (Sinemet 25/100) 1 tab TID PO Last administered on at 08:33; Start 07/16/17 at 21:00; Stop 07/19/17 at 10:40; Status DC Clopidogrel Bisulfate (Plavix) 75 mg DAILY PO Last administered on 07/19/17at 08 :33; Start 07/17/17 at 09:00; Stop 07/19/17 at 10:40; Status DC Donepezil HCl (Aricept) 10 mg QHS PO Last administered on 07/18/17at 19:26; Start 07/16/17 at 21:00; Stop 07/19/17 at 10:40; Status DC Latanoprost (Xalatan) 1 drop QHS OU Last administered on 07/18/17at 19:26; Start 07/16/17 at 21:00; Stop 07/19/17 at 10:40; Status DC Atorvastatin Calcium (Lipitor) 40 mg QHS PO Last administered on 07/18/17at 19: 25; Start 07/16/17 at 21:00; Stop 07/19/17 at 10:40; Status DC Carvedilol (Coreg) 25 mg BIDWMEALS PO Last administered on 07/19/17at 08:31; Start 07/16/17 at 17:00; Stop 07/19/17 at 10:40; Status DC Isosorbide Dinitrate (Isordil) 30 mg BID PO Last administered on 07/19/17at 08: 32; Start 07/16/17 at 21:00; Stop 07/19/17 at 10:40; Status DC Famotidine (Pepcid) 20 mg DAILY PO Last administered on 07/19/17at 08:34; Start 07/16/17 at 21:00; Stop 07/19/17 at 10:40; Status DC Losartan Potassium (Cozaar) 100 mg DAILY PO Last administered on 07/19/17at 08: 33; Start 07/17/17 at 09:00; Stop 07/19/17 at 10:40; Status DC Hydrochlorothiazide (Hydrodiuril) 25 mg DAILY PO Last administered on at 08:33; Start 07/17/17 at 09:00; Stop 07/19/17 at 10:40; Status DC Ceftriaxone Sodium 1 gm/ Sodium Chloride 50 ml @ 100 mls/hr Q24H IV ; Start at 15:45; Stop 07/16/17 at 16:01; Status DC Ceftriaxone Sodium (Rocephin) 1 gm Q24H IVP ; Start 07/16/17 at 16:00; Stop at 16:55; Status DC Ceftriaxone Sodium (Rocephin) 1 gm Q24H IVP Last administered on 07/18/17at 14: 06; Start 07/17/17 at 11:00; Stop 07/19/17 at 10:40; Status DC Lactobacillus Rhamnosus (Culturelle) 1 cap BID PO Last administered on at 08:34; Start 07/17/17 at 09:00; Stop 07/19/17 at 10:41; Status DC Active Scripts Active Levaquin (Levofloxacin) 500 Mg Tablet 1 Tab PO DAILY Culturelle (Lactobacillus Rhamnosus Gg) 1 Each Cap.sprink 1 Cap PO BID 14 Days Carvedilol 25 Mg Tablet 25 Mg PO BID 30 Days LAST DOSE GIVEN: DATE: TIME: NEXT DOSE DUE: DATE: TIME: Reported Sinemet 25-100 Mg Tablet (Carbidopa/Levodopa) 1 Each Tablet 1 Tab PO TID Clopidogrel (Clopidogrel Bisulfate) 75 Mg Tablet 1 Tab PO DAILY LAST DOSE GIVEN: DATE: TIME: NEXT DOSE DUE: DATE: TIME: Amlodipine Besylate 10 Mg Tablet 1 Tab PO DAILY LAST DOSE GIVEN: DATE: TIME: NEXT DOSE DUE: DATE: TIME: Latanoprost 2.5 Ml Drops 1 Drop EACHEYE QHS LAST DOSE GIVEN: DATE: TIME: NEXT DOSE DUE: DATE: TIME: Aricept (Donepezil Hcl) 10 Mg Tablet 1 Tab PO QHS LAST DOSE GIVEN: DATE: TIME: NEXT DOSE DUE: DATE: TIME: Diovan Hct 320-25 Mg Tablet (Valsartan/Hydrochlorothiazide) 1 Each Tablet 1 Each PO DAILY LAST DOSE GIVEN: DATE: TIME: NEXT DOSE DUE: DATE: TIME: Atorvastatin Calcium 40 Mg Tablet 40 Mg PO DAILY LAST DOSE GIVEN: DATE: TIME: NEXT DOSE DUE: DATE: TIME: Isosorbide Dinitrate 30 Mg Tablet 30 Mg PO BID LAST DOSE GIVEN: DATE: TIME: NEXT DOSE DUE: DATE: TIME: Ranitidine Hcl 150 Mg Tablet 150 Mg PO BID LAST DOSE GIVEN: DATE: TIME: NEXT DOSE DUE: DATE: TIME: KANDICE LEES DO Jul 19, 2017 15:16
== END 2017-07-19 10:35 | disposition home or self-care (01) | DRG 194 ==
LOC: ER 09:16 → 1 SOUTH 12:21
PROVIDERS: ADMIT Internal Medicine; ATTEND Internal Medicine
DX: J18.9 Pneumonia, unspecified organism (principal); E44.0 Moderate protein-calorie malnutrition; I73.9 Peripheral vascular disease, unspecified; N18.3 Chronic kidney disease, stage 3 (moderate); E78.00 Pure hypercholesterolemia, unspecified; Z96.651 Presence of right artificial knee joint; G25.81 Restless legs syndrome; I12.9 Hypertensive chronic kidney disease with stage 1 through stage 4 chronic kidney disease, or unspecified chronic kidney disease; I25.10 Atherosclerotic heart disease of native coronary artery without angina pectoris; K21.9 Gastro-esophageal reflux disease without esophagitis; N40.0 Benign prostatic hyperplasia without lower urinary tract symptoms; Z79.899 Other long term (current) drug therapy; I25.2 Old myocardial infarction; Z79.02 Long term (current) use of antithrombotics/antiplatelets; Z87.891 Personal history of nicotine dependence; Z95.1 Presence of aortocoronary bypass graft; Z98.61 Coronary angioplasty status; Z90.49 Acquired absence of other specified parts of digestive tract; Z88.2 Allergy status to sulfonamides; Z82.49 Family history of ischemic heart disease and other diseases of the circulatory system
CPT/HCPCS: 36415; 71046; 80048; 80053; 83605; 83880; 85025; 87040; 93005; 96361; 96374; J0456; J0696; 97530; 99285-25; J7030